=== PATIENT | male | born 1985 | race Caucasian/White ===

== ENCOUNTER 2023-07-20 06:09 | Day surgery (SDC) | payer OTHER ==
[~2023-07-20] VITALS: Ht 172.7 cm; Wt 79.4 kg
[2023-07-20] MEDS ORDERED: LIDOCAINE/EPI 1% 1:100000 20 ML VIAL INJ ONE (07:04)
[2023-07-20] MEDS ORDERED: BUPIVACAINE-MPF 0.5% 10 ML VIAL INJ ONE (07:04)
[2023-07-20] MEDS ORDERED: ceFAZolin 2,000 MG VIAL ONE (07:18)
[2023-07-20] MEDS ORDERED: ACETAMINOPHEN 100 ML IV ONE (07:41)
[2023-07-20] MEDS ORDERED: MIDAZOLAM 2 MG/2 ML VIAL ONE (07:43)
[2023-07-20] MEDS ORDERED: fentaNYL citrate 0.05 MG/ML VIAL ONE (07:43)
[2023-07-20] MEDS ORDERED: ONDANSETRON 4 MG/2 ML VIAL ONE (08:00)
[2023-07-20] MEDS ORDERED: DEXAMETHASONE 4 MG/ML VIAL ONE (08:00)
[2023-07-20] MEDS ORDERED: SUCCINYLCHOLINE CHLORIDE 200 MG/10 ML VIAL IVP ONE ×2 (08:00→08:01)
[2023-07-20] MEDS ORDERED: PROPOFOL 200 MG/20 ML VIAL IV ONE ×2 (08:00→08:01)
[2023-07-20] MEDS ORDERED: KETOROLAC 30 MG/ML VIAL ONE (08:31)
[2023-07-20] MEDS ORDERED: ACET-8905 PO (08:45)
[2023-07-20] MEDS ORDERED: HYDROmorphone 1 MG/ML AMP IVP PRN (08:45)
[2023-07-20] MEDS ORDERED: ONDANSETRON 4 MG/2 ML VIAL IV PRN (08:45)
[2023-07-20] MEDS ORDERED: MORPHINE SULFATE 2 MG/ML SYR IVP PRN (08:45)
[2023-07-20] MEDS ORDERED: MORPHINE SULFATE 4 MG/ML SYR IV PRN (08:45)
== END 2023-07-20 10:08 | disposition home or self-care (01) ==
LOC: MDS 06:09 → MMU 06:09 → MDS 10:08
PROVIDERS: ATTEND Surgery
DX: L05.91 Pilonidal cyst without abscess (principal); F17.210 Nicotine dependence, cigarettes, uncomplicated
CPT/HCPCS: 11770; 71045; J0330; J1100; J1885; J2001; J2250; J2405; J2704; J3010; J3490; J7030